=== PATIENT | male | born 1955 | race Caucasian/White ===

== ENCOUNTER 2025-04-08 14:05 | Emergency (ER) | payer MEDICARE, OTHER ==
[~2025-04-08] VITALS: Ht 180.3 cm; Wt 70.0 kg
[2025-04-08 14:10] VITALS: TEMP 98
--- NOTE | 2025-04-08 14:53 | Physician Documentation ---
History of Present Illness ~ Chief Complaint: Mechanical Fall Stated Complaint: FALL Time Seen by MD: 14:37 HPI This is a 69-year-old male with a history of CVA and right-sided deficit who presents with right shoulder and right hip pain following a mechanical trip and fall while exiting his RV, patient reports he missed a step causing him to fall striking a chair and then the ground with his right shoulder right hip and posterior head, patient reports no neck pain or head pain. Patient reports no use of blood thinners and reports no loss of consciousness. Patient reports no other acute symptoms or concerns. Tetanus within 5 Years?: No Medication Reconciliation Allergies: Coded Allergies: No Known Allergies (Unverified , 08/17/24) Past Medical History Past Medical History: CVA/TIA/Stroke, Diabetes Review of Systems ROS As stated above in the HPI, otherwise all systems are reviewed and negative. Physical Exam Vital Signs: Temperature: 98.0, Heart Rate: 99, Respiratory Rate: 17, BP: 150/69, Pulse Oximetry: 99, Weight: 70.000 Oxygen Flow Rate: 0 Physical Exam VITALS: Reviewed and as above. GENERAL: Alert, nontoxic appearing, no apparent distress. HEENT: PERRLA, pupils 2 mm, EOMI, no C-spine tenderness, no step-offs, no crepitus, able to rotate head 45 in each direction RESPIRATORY: No increased work of breathing, no respiratory distress, speaking in full clear sentences, clear lung sounds in all urban CHEST: No tenderness to palpation, no crepitus, no deformity, no ecchymosis, no paradoxical movement CV: Regular rate and rhythm no murmur BACK: Nontender to palpation, no central spinal tenderness, no step-offs, no crepitus GI: Nontender to palpation, non distended, no ecchymosis MUSCULOSKELETAL: Right shoulder tender to palpation sensation and pulse intact distal to injury, right hip tender to palpation, pain elicited with movement, right lower extremity sensation and pulse intact distal to injury NEURO: GCS 15, residual right-sided deficits at baseline for patient Progress Progress Note 1525: Spoke with on-call orthopedist Dr. Wade who recommends patient be transferred to a trauma center for management of pelvic fracture [id number]: I spoke with [facility] transfer center who per their on-call orthopedist Dr. Eugene patient will require higher level of care and recommends transfer to [facility], [facility], or [place] 2225: I spoke with [facility] trauma surgeon Dr. Zev vigil who kindly accepts patient for transfer Results/Orders Results/Orders Orders - JANEY HUNTLEY FLOAT TENDER Shoulder, Complete (Min 2 Vws) (04/08/25 14:46) Ct Head (04/08/25 14:46) Ct Pelvis (04/08/25 15:03) Chest,Single View (04/08/25 22:48) Completed Orders - JANEY HUNTLEY FLOAT TENDER Ketorolac Trometh 15mg/Ml Vial (Toradol (04/08/25 14:50) Shoulder, Complete (Min 2 Vws) (04/08/25 14:46) Ct Head (04/08/25 14:46) Ct Pelvis (04/08/25 15:03) Cbc/Diff (04/08/25 15:18) BMP (04/08/25 15:18) Morphine 4mg/Ml Inj. (Morphine Inj.) (04/08/25 15:40) Ondansetron Inj. (Zofran 4mg/2ml Vial) (04/08/25 15:40) Potassium Cl Sr Tablet (K-Dur Tablet) (04/08/25 20:52) Potassium Cl 10meq/100ml Bag (Potassium (04/08/25 20:55) Chest,Single View (04/08/25 22:48) Fentanyl/Pf (Fentanyl 0.05 Mg/Ml Syringe (04/09/25 00:25) Medications Received in ER Medications (Trade) Dose Ordered Sig/Nkechi Route PRN Reason Start Time Stop Time Status Last Admin Dose Admin (morphine inj.) 4 mg ONCE ONCE IV 04/08/25 20:25 04/08/25 20:26 DC 04/08/25 20:38 4 MG (K-DUR tablet) 40 meq ONCE STAT PO 04/08/25 20:52 04/08/25 20:53 DC 04/08/25 21:38 40 MEQ Potassium Chloride 100 ml @ 100 mls/hr Q1H ONCE IV 04/08/25 20:55 04/08/25 21:54 DC 04/08/25 21:54 100 MLS/HR (fentaNYL 0.05 MG/ML syringe) 25 mcg ONCE ONCE IV 04/09/25 00:25 04/09/25 00:26 DC 04/09/25 00:32 25 MCG Vital Signs 04/08/25 04/08/25 04/08/25 04/08/25 14:10 14:30 15:15 15:20 Temp 98.0 Pulse 99 96 Resp 17 18 18 B/P (MAP) 150/69 132/81 (98) Pulse Ox 99 99 O2 Flow Rate 0 0 04/08/25 04/08/25 04/08/25 04/08/25 15:24 16:53 20:29 20:30 Pulse 53 68 Resp 18 16 16 B/P (MAP) 151/65 (93) 164/89 (114) Pulse Ox 97 98 O2 Flow Rate 0 04/08/25 04/09/25 21:57 00:17 Pulse 98 92 Resp 16 16 B/P (MAP) 144/70 (94) 147/88 (107) Pulse Ox 98 95 Laboratory Tests Test 04/08/25 15:54 White Blood Count 14.1 H Red Blood Count 4.61 L Hemoglobin 13.7 L Hematocrit 40.9 L Mean Corpuscular Volume 88.8 Mean Corpuscular Hemoglobin 29.7 Mean Corpuscular Hemoglobin Concent 33.5 Red Cell Distribution Width 13.7 Platelet Count 337 Mean Platelet Volume 8.5 Neutrophils (%) (Auto) 88.3 H Lymphocytes (%) (Auto) 5.6 L Monocytes (%) (Auto) 5.8 Eosinophils (%) (Auto) 0.1 Basophils (%) (Auto) 0.2 Neutrophils # (Auto) 12.4 H Lymphocytes # (Auto) 0.8 L Monocytes # (Auto) 0.8 Eosinophils # (Auto) 0.0 Basophils # (Auto) 0.0 CBC Comment Sodium Level 141 Potassium Level 3.2 L Chloride Level 104 Carbon Dioxide Level 22.4 L Anion Gap 15 Blood Urea Nitrogen 19 H Creatinine 1.15 H Estimated GFR/1.73 m2 63 BUN/Creatinine Ratio 16.5 Glucose Level 207 H Calcium Level 9.3 Albumin 3.7 Chemistry Comments EKG/XRAY/CT/US/VASC/MRI Chest X-Ray : Additional Comments EXAM: DI CHEST,SINGLE VIEW TECHNIQUE: Single frontal chest radiograph CLINICAL HISTORY: Trauma/Fall, chest pain COMPARISON: None FINDINGS/IMPRESSION: The lungs are clear. The cardiomediastinal silhouette is unremarkable. No pleural effusion or pneumothorax. No acute osseous abnormality. Electronically Signed by:ARPAN CASTANON MD Date & Time: 04/08/25 2318 Dictated by: ARPAN CASTANON MD Dictation date and time: 04/08/25 2240 I have reviewed and agree with the radiology report. I have reviewed and interpreted the imaging as: No focal consolidation or pne umothorax Bone/Soft Tissue X-Ray (Ext.) #1: Additional Comment DI SHOULDER, COMPLETE (MIN 2 VWS) INDICATION: Fall, Shoulder Pain TECHNICAL DATA: 2 views were obtained of the left shoulder. COMPARISON: None FINDINGS: There is no fracture or focal bone abnormality. The glenohumeral joint is normally maintained. The acromioclavicular joint appears degenerative. The humeral head is not high riding. Adjacent soft tissues are within normal limits. Degenerative changes are noted involving the visualized spine. IMPRESSION: No acute fracture or dislocation of the left shoulder. Electronically Signed by:ABDULKADIR COSTA MD Date & Time: 04/08/25 1538 Dictated by: ABDULKADIR COSTA MD Dictation date and time: 04/08/25 1538 I have reviewed and agree with the radiology report. I have reviewed and interpreted the imaging as: No fracture or dislocation Bone/Soft Tissue X-Ray (Ext.) #2: Additional Comment Right HIP RADIOGRAPH. CLINICAL INDICATION: HIP PAIN TECHNIQUE: 4 views of the right hip were obtained. FINDINGS/IMPRESSION: Moderate right hip osteoarthritis. Nondisplaced right inferior pubic ramus fracture. There is a subtle lucency involving the right acetabulum, which could represent a nondisplaced fracture. CT recommended. Electronically Signed by:ARPAN CASTANON MD Date & Time: 04/08/25 1459 Dictated by: ARPAN CASTANON MD Dictation date and time: 04/08/25 1459 I have reviewed and agree with the radiology report. I have reviewed and interpreted the imaging as: Evidence of pelvic and possible acetabular fracture CT #1: Impression Indication: [facility] Fall, Hip Pain Technique: CT axial images of the pelvis are obtained without contrast. Coronal and sagittal reformats were obtained. Radiation Dose Information: CTDI volume is 12 mGy. Dose-length product is 361 mGy*cm Comparison: None FINDINGS /impression: There is a severely comminuted fracture of the right iliac bone extending from the anterior superior iliac spine and extending inferiorly through the right acetabulum anterior, posterior, medial mccoy. The fracture severely comminuted in the right acetabular region. Fractures of the right superior / inferior pubic rami which are comminuted. Hematoma in the pelvis along the right lateral aspect of the bladder, moderately compressing upon the right aspect of the bladder. Right ileus psoas region hematoma. Recommend CT angiogram of the pelvis especially if there is clinical concern for active extravasation/ bleeding. Possible fracture right femur greater trochanter. Correlate with point tenderness. Lower anterior abdominal wall contusion. Moderate degenerative changes bilateral hips. Pubic symphysis is intact. Moderate bilateral sacroiliac degenerative changes. Moderate to advanced degenerative changes at L5-S1. L5 pars defects with 3 mm anterolisthesis L5 on S1. Electronically Signed by:KAVIN STEWART MD Date & Time: 04/08/251601 Dictated by: KAVIN STEWART MD Dictation date and time: 04/08/25 160 I have reviewed and agree with the radiology report. I have reviewed and interpreted the imaging as: CT of pelvis interpreted as multiple comminuted displaced fractures to right pelvis including acetabulum and [place] CT #2: Impression CLINICAL HISTORY: Fall with Head Strike TECHNIQUE: Helical scanning was performed of the head from the skull base to the vertex. Multiplanar reconstructions were performed. This exam was performed according to our departmental dose optimization program. Up-to-date CT equipment and radiation dose reduction techniques are utilized as appropriate. CTDI 64 DLP 1171 COMPARISON: None FINDINGS: There is no evidence for acute intracranial hemorrhage, acute ischemic changes, mass, mass effect, or extra-axial fluid collection. There is no hydrocephalus or midline shift. There is no effacement of the cerebral sulci and basal subarachnoid cisterns. The amanda-white matter differentiation is well maintained. The imaged paranasal sinuses are clear. There has been bilateral cataract extraction. There is an old left pontine infarct versus artifact. IMPRESSION: NO ACUTE INTRACRANIAL ABNORMALITY SEEN. Electronically Signed by:ARPAN CASTANON MD Date & Time: 04/08/251517 Dictated by: ARPAN CASTANON MD Dictation date and time: 04/08/251517 I have reviewed and agree with the radiology report. I have reviewed and interpreted the imaging as: No intracranial hemorrhage observed Medical Decision Making Findings This is a 69-year-old male presented to the emergency department following a mechanical fall from approximately 2-3 feet for striking a chair and then the ground with his right shoulder and right hip, imaging demonstrated comminuted fracture of the right hip and pelvis, in consultation with on-call orthopedic surgeon patient will require transfer to a higher level of care for trauma services due to pelvic fracture. Trauma transfer initiated. Patient is hemodynamically stable. No fracture demonstrated on right shoulder, head CT ordered due to head strike did not demonstrate evidence of intracranial hemorrhage. Imaging of neck not indicated due to negative [place]is[place] C-spine rule. Patient medicated for pain reporting adequate relief of pain. Due to complexity patient's injury after consultation with [facility] patient will require transfer to specialty Center, I spoke with trauma surgeon at [facility] who kindly accepted patient for transfer. At the time of transfer patient was hemodynamically stable and appropriate for transport. Differential Dx:Considerations: Include: Closed head injury, Pneumothorax, Cerebral contusion, Spine injury, Contusion(s), Laceration(s) Departure Time of Disposition: 00:12 Disposition: 02 SHORT TERM HOSPITAL Impression: Primary Impression: Closed pelvic fracture Qualified Codes: S32.810A - Multiple fractures of pelvis with stable disruption of pelvic ring, initial encounter for closed fracture Condition: Guarded Referrals: NO PRIMARY CARE PROVIDER (PCP) Education Educated: Patient, Family Educated regarding: diagnosis, treatment, prognosis Signature Scribe Signature: No scribe Attestation: The note accurately reflects work and decisions made by me.ZOE Will 04/09/25 02:18 JANEY HUNTLEY Apr 08, 2025 14:53
--- NOTE | 2025-04-08 15:01 | RADIOLOGY REPORT ---
Right HIP RADIOGRAPH. CLINICAL INDICATION: HIP PAIN TECHNIQUE: 4 views of the right hip were obtained. FINDINGS/IMPRESSION: Moderate right hip osteoarthritis. Nondisplaced right inferior pubic ramus fra cture. There is a subtle lucency involving the right acetabulum, which could represent a nondisplaced fracture. CT recommended.
[2025-04-08] MEDS: ketorolac trometh 15mg/ml vial 15 MG/ML ML IM ONE (15:15)
--- NOTE | 2025-04-08 15:21 | RADIOLOGY REPORT ---
CLINICAL HISTORY: Fall with Head Strike TECHNIQUE: Helical scanning was performed of the head from the skull base to the vertex. Multiplanar reconstructions were performed. This exam was performed according to our departmental dose optimizat ion program. Up-to-date CT equipment and radiation dose reduction techniques are utilized as appropri ate. CTDI 64 DLP 1171 COMPARISON: None FINDINGS: There is no evidence for acute intracranial hemorrhage, acute ischemic changes, mass, mass effect, or extra-axial fluid collection. There is no hydrocephalus or midline shift. There is no effacement of the cerebral sulci and basal subarachnoid cisterns. The amanda-white matter differentiation is well enrike ntained. The imaged paranasal sinuses are clear. There has been bilateral cataract extraction. There is an old left pontine infarct versus artifact. IMPRESSION: NO ACUTE INTRACRANIAL ABNORMALITY SEEN.
--- NOTE | 2025-04-08 15:40 | RADIOLOGY REPORT ---
DI SHOULDER, COMPLETE (MIN 2 VWS) INDICATION: Fall, Shoulder Pain TECHNICAL DATA: 2 views were obtained of the left shoulder. COMPARISON: None FINDINGS: There is no fracture or focal bone abnormality. The glenohumeral joint is normally maintained. The ac romioclavicular joint appears degenerative. The humeral head is not high riding. Adjacent soft tissue s are within normal limits. Degenerative changes are noted involving the visualized spine. IMPRESSION: No acute fracture or dislocation of the left shoulder.
[2025-04-08] MEDS: morphine 4 MG/ML inj SYRINge IV ONE ×2 (15:50→20:38)
[2025-04-08] MEDS: ondansetron/PF 4mg/2ml inj IV PRN (15:50)
--- NOTE | 2025-04-08 16:01 | RADIOLOGY REPORT ---
Indication: [facility] Fall, Hip Pain Technique: CT axial images of the pelvis are obtained without contrast. Coronal and sagittal reformat s were obtained. Radiation Dose Information: CTDI volume is 12 mGy. Dose-length product is 361 mGy*cm Comparison: None FINDINGS /impression: There is a severely comminuted fracture of the right iliac bone extending from the anterior superior iliac spine and extending inferiorly through the right acetabulum anterior, posterior, medial mccoy. The fracture severely comminuted in the right acetabular region. Fractures of the right superior / inferior pubic rami which are comminuted. Hematoma in the pelvis along the right lateral aspect of the bladder, moderately compressing upon the right aspect of the bladder. Right ileus psoas region hematoma. Recommend CT angiogram of the pelvis especially if there is clinical concern for active extravasation/ bleeding. Possible fracture right femur greater trochanter. Correlate with point tenderness. Lower anterior abdominal wall contusion. Moderate degenerative changes bilateral hips. Pubic symphysis is intact. Moderate bilateral sacroilia c degenerative changes. Moderate to advanced degenerative changes at L5-S1. L5 pars defects with 3 mm anterolisthesis L5 on S1.
[2025-04-08 16:14] LABS: MEAN PLATELET VOLUME 8.5 FL (7.4-10.4); RED CELL DISTRIBUTION WIDTH 13.7 % (11.5-14.5)
[2025-04-08 16:25] LABS: CREATININE 1.15 MG/DL (0.60-1.10); TOTAL CARBON DIOXIDE 22.4 MMOL/L (24-32); eCRCL 61 ML/MIN; eGFR 63 ML/MIN
[2025-04-08] MEDS: potassium Cl 20 mEq SR tablet PO STA (21:38)
[2025-04-08] MEDS: potassium CL 10mEq/100ml bag 100 ML IV ONE (21:54)
--- NOTE | 2025-04-08 23:22 | RADIOLOGY REPORT ---
EXAM: DI CHEST,SINGLE VIEW TECHNIQUE: Single frontal chest radiograph CLINICAL HISTORY: Trauma/Fall, chest pain COMPARISON: None FINDINGS/IMPRESSION: The lungs are clear. The cardiomediastinal silhouette is unremarkable. No pleural effusion or pneumo thorax. No acute osseous abnormality.
[2025-04-09 00:17] VITALS: BP 147/88; PULSE 92; RESP 16; O2SAT 95
[2025-04-09] MEDS: fentaNYL/PF 50MCG/1 ML 2ML syringe IV ONE (00:32)
== END 2025-04-09 00:49 | disposition short-term general hospital (02) ==
LOC: ER 14:05
DX: S32.491A Other specified fracture of right acetabulum, initial encounter for closed fracture (principal); E11.9 Type 2 diabetes mellitus without complications; M43.17 Spondylolisthesis, lumbosacral region; Z86.73 Personal history of transient ischemic attack (TIA), and cerebral infarction without residual deficits; W10.9XXA Fall (on) (from) unspecified stairs and steps, initial encounter; Y93.89 Activity, other specified; Y92.89 Other specified places as the place of occurrence of the external cause; Y99.8 Other external cause status
CPT/HCPCS: 36415; 70450; 71045; 72192; 73030; 73502; 80048; 82948; 85025; 96361; 96372; 96374; 96375; 96376; 99285; J1885; J2270; J2405; J3010; J3480